=== PATIENT | female | born 1935 | race Caucasian/White ===

== ENCOUNTER 2018-06-13 11:23 | Emergency (ER) | payer SELFPAY ==
[2018-06-13 11:26] VITALS: TEMP 98.4; BMI 29.2
[2018-06-13] MEDS ORDERED: LABETALOL HCL 5 MG/1 ML (100MG/20 ML VIAL) IVPUSH ONE (11:43)
--- NOTE | 2018-06-13 11:54 | PDOC ---
History of Present Illness - General Chief Complaint: Blood Pressure Problem Stated Complaint: HIGH BLOOD PRESSURE Time Seen by Provider: 06/13/18 11:23 History Source: Patient Exam Limitations: No Limitations - History of Present Illness Initial Comments: 06/13/18 11:50 83 year old female with pmh of HTN, from [facility], presents with lightheadedness and elevated SBP > 210. The patient recently travelled from [facility] 1 month ago. Has been on a blood pressure medication from [facility] (to which we don't know the name of). Two weeks ago, saw a local PMD in the [place], who changed BP medications to bystolic 15 mg BID. Since then, has been feeling increasingly lightheaded, despite taking the medications. No recent illnesses, fevers, chills, headache, nausea, vomiting, chest pain, SOB , abdominal pain, diarrhea, dysuria. Today, pt c/o of feeling lightheaded. Son took the BP cuff and noted systolics > 210 despite adherence to meds and brought pt to ED. Past History - Past Medical History Allergies/Adverse Reactions: Allergies Allergy/AdvReac Type Severity Reaction Status Date / Time No Known Allergies Allergy Verified 06/13/18 11:23 Home Medications: Ambulatory Orders Aspirin [Aspirin EC] 81 mg PO DAILY 06/13/18 Cephalexin [Keflex] 500 mg PO BID #14 capsule 06/13/18 Nebivolol HCl [Bystolic] 15 mg PO BID 06/13/18 Nifedipine [Adalat cc] mg PO ASDIR 06/13/18 COPD: No HTN: Yes - Suicide/Smoking/Psychosocial Hx Smoking History: Never smoked Have you smoked in the past 12 months: No Review of Systems - Review of Systems Able to Perform ROS?: Yes Comments:: 06/13/18 12:00 GENERAL/CONSTITUTIONAL: [No fever or chills. No weakness. No weight change.] HEAD, EYES, EARS, NOSE AND THROAT: [No change in vision. No ear pain or discharge. No sore throat.] CARDIOVASCULAR: [No chest pain or shortness of breath.] RESPIRATORY: [No cough, wheezing, or hemoptysis.] GASTROINTESTINAL: [No nausea, vomiting, diarrhea or constipation. No rectal bleeding.] GENITOURINARY: [No dysuria, frequency, or change in urination.] MUSCULOSKELETAL: [No joint or muscle swelling or pain. No neck or back pain.] SKIN AND BREASTS: [No rash or easy bruising.] NEUROLOGIC: [No headache, vertigo, loss of consciousness, or loss of sensation. ] + lightheadedness PSYCHIATRIC: [No depression or anxiety.] ENDOCRINE: [No increased thirst. No abnormal weight change.] HEMATOLOGIC/LYMPHATIC: [No anemia, easy bleeding, or history of blood clots.] ALLERGIC/IMMUNOLOGIC: [No hives or skin allergy. No latex allergy.] *Physical Exam - Vital Signs Last Vital Signs Temp Pulse Resp BP Pulse Ox 98.4 F 61 18 213/94 H 96 06/13/18 11:23 06/13/18 11:23 06/13/18 11:23 06/13/18 11:23 06/13/18 11:23 - Physical Exam Comments: 06/13/18 12:00 GENERAL: Awake, alert, and fully oriented, in no acute distress HEAD: No signs of trauma EYES: EOMI, sclera anicteric, conjunctiva clear ENT: Auricles normal inspection, hearing grossly normal, nares patent, o Moist mucosa NECK: Normal ROM, supple LUNGS: Breath sounds equal, clear to auscultation bilaterally. No wheezes, and no crackles HEART: Regular rate and rhythm, normal S1 and S2, no murmurs, rubs or gallops ABDOMEN: Soft, nontender,. No guarding, no rebound. No masses EXTREMITIES: Normal range of motion, no edema. No clubbing or cyanosis. No cords, erythema, or tenderness NEUROLOGICAL: Cranial nerves II through XII intact. Normal speech, normal gait. 5/5 strength upper and lower extremities. No pronator drift. Sensation intact throughout. SKIN: Warm, Dry, normal turgor, no rashes or lesions noted. Heart Score/ECG Review #1 ECG reviewed & interpreted by me at: 11:40 06/13/18 11:54 NSR 57 with 1st degree AV block, LVH, T wave flat aVL, V2, no std/keven, QTC 457 msec ED Treatment Course - LABORATORY CBC & Chemistry Diagram: 06/13/18 12:00 06/13/18 12:45 Medical Decision Making - Medical Decision Making 06/13/18 12:01 Vital Signs Temp Pulse Resp BP Pulse Ox 98.4 F 61 18 213/94 H 96 06/13/18 11:23 06/13/18 11:23 06/13/18 11:23 06/13/18 11:23 06/13/18 11:23 83 year old female with very elevated blood pressure. I suspect may be secondary to adjustments to her BP regiment. Pt only endorsing lightheadedness, but will check labs and ECG. Will defer on Head CT given no headache and normal neuro exam. Check UA for UTI Trial hydralazine and reassess. Touch base with PMD. 06/13/18 13:52 CBC, BMP 06/13/18 12:00 06/13/18 12:45 CMP Sodium 133 mmol/L (136-145) L 06/13/18 12:45 Potassium 3.5 mmol/L (3.5-5.1) 06/13/18 12:45 Chloride 105 mmol/L (98-107) 06/13/18 12:45 Carbon Dioxide 22 mmol/L (22-28) 06/13/18 12:45 Anion Gap 6 MMOL/L (8-16) L 06/13/18 12:45 BUN 15 mg/dl (7-18) 06/13/18 12:45 Creatinine 0.7 mg/dl (0.6-1.3) 06/13/18 12:45 Creat Clearance w eGFR > 60 (>60) 06/13/18 12:45 Random Glucose 109 mg/dl (74-106) H 06/13/18 12:45 Calcium 8.5 mg/dl (8.4-10.2) 06/13/18 12:45 Magnesium 1.8 mg/dL (1.8-2.4) 06/13/18 12:45 Total Bilirubin 0.6 mg/dl (0.2-1.0) 06/13/18 12:45 AST 30 U/L (10-42) 06/13/18 12:45 ALT 31 U/L (10-40) 06/13/18 12:45 Alkaline Phosphatase 132 U/L (32-92) H 06/13/18 12:45 Troponin I < 0.03 ng/ml (0.00-0.06) 06/13/18 12:45 Total Protein 7.0 g/dl (6.4-8.3) 06/13/18 12:45 Albumin 3.7 g/dl (3.5-5.0) 06/13/18 12:45 Urine Test Results Urine Color Yellow 06/13/18 12:10 Urine Appearance Clear 06/13/18 12:10 Urine pH 7.0 (4.5-8) 06/13/18 12:10 Ur Specific [place] 1.015 (1.010-1.035) 06/13/18 12:10 Urine Protein 2+ (NEGATIVE) H 06/13/18 12:10 Urine Glucose (UA) Negative (NEGATIVE) 06/13/18 12:10 Urine Ketones Negative (NEGATIVE) 06/13/18 12:10 Urine Blood 1+ (NEGATIVE) H 06/13/18 12:10 Urine Nitrite Negative (NEGATIVE) 06/13/18 12:10 Urine Bilirubin Negative (NEGATIVE) 06/13/18 12:10 Ur Leukocyte Esterase 2+ (NEGATIVE) H 06/13/18 12:10 Urine RBC 2-5 /hpf (0-3) 06/13/18 12:10 Urine WBC 10-20 (0-5) 06/13/18 12:10 Ur Epithelial Cells 1+ /HPF 06/13/18 12:10 Urine Bacteria 3+ /hpf (NEGATIVE) 06/13/18 12:10 Labs and UA reviewed. I suspect the patient's elevated BP and lightheadedness may be secondary to her UTI. Will treat with keflex. Pt's BP improved significantly with hydralazine. I had spoken with pt's PCP Dr. Self [phone]. Pt was on high doses of amiodarone and nifedipine sublingual for her HTN. States that this is an old [facility] HTN medication. The patient was having significant coughing from the amiodarone, which Dr. Self promptly discontinued. The patient was then placed on bystolic instead. I have interpreted the chest xray, (pending official radiology read), appears to have borderline cardiomegaly and perhaps some evidence of interstitial lung disease. This was expressed to the PCP who states that this may be the result of the amiodarone. Either way, patient has no chest pain or SOB, and the patient reports feeling better here. I advised the patient and son that we should treat UTI first then consider adjusting BP medications. Pt's son agrees with plan. Pt's PCP agrees with plan. *DC/Admit/Observation/Transfer Diagnosis at time of Disposition: UTI (urinary tract infection) Qualifiers: Urinary tract infection type: site unspecified Hematuria presence: without hematuria Qualified Code(s): N39.0 - Urinary tract infection, site not specified Hypertension Qualifiers: Hypertension type: essential hypertension Qualified Code(s): I10 - Essential ( primary) hypertension - Discharge Dispostion Disposition: HOME Condition at time of disposition: Improved - Prescriptions Prescriptions: Cephalexin [Keflex] 500 mg PO BID #14 capsule - Referrals - Patient Instructions Printed Discharge Instructions: DI for High Blood Pressure, DI for Urinary Tract Infection (UTI) Additional Instructions: Please take the antibiotics (keflex) every 12 hours for 7 days. Drink plenty of fluids and rest. Please bring the copy of the results to your doctor. Continue to take your blood pressure medication. Please follow up with your doctor. Call to schedule an appointment. If you ever had chest pain or difficulty breathing, please return to the ER. - Post Discharge Activity
[2018-06-13] MEDS ORDERED: LABETALOL HCL 5 MG/1 ML (100MG/20 ML VIAL) ONE (12:06)
[2018-06-13] MEDS ORDERED: hydrALAZINE HCL 20 MG/ML VIAL IVPUSH ONE (12:12)
[2018-06-13] MEDS ORDERED: hydrALAZINE HCL 20 MG/ML VIAL ONE (12:13)
[2018-06-13 12:20] LABS: EOS % 3.6 % (0-4.5); HEMATOCRIT 39.3 % (32.4-45.2); LYMPH % 27.9 % (8-40); MCH 29.1 pg (25.7-33.7); MCHC 33.2 g/dl (32.0-36.0); MEAN CELL VOLUME 87.8 fl (80-96); MEAN PLT VOLUME 9.4 fl (7.5-11.1); MONO % 10.2 % (3.8-10.2); NEUT % 56.3 % (42.8-82.8); PLATELET COUNT 365 K/MM3 (134-434); RBC 4.47 M/mm3 (3.60-5.2); RDW 13.9 % (11.6-15.6); WHITE BLOOD COUNT 7.1 K/mm3 (4.0-10.8)
[2018-06-13 12:27] LABS: URINE APPEARANCE Clear; URINE BILIRUBIN Negative (NEGATIVE); URINE COLOR Yellow; URINE GLUCOSE (UA) Negative (NEGATIVE); URINE KETONE Negative (NEGATIVE); URINE LEUK ESTERASE 2+ (NEGATIVE); URINE NITRITE Negative (NEGATIVE); URINE PROTEIN 2+ (NEGATIVE); URINE UROBILINOGEN 0.2 (0.2-1.0)
[2018-06-13 13:02] LABS: ALBUMIN 3.7 g/dl (3.5-5.0); ALK PHOS 132 U/L (32-92); ANION GAP 6 MMOL/L (8-16); BILIRUBIN,TOTAL 0.6 mg/dl (0.2-1.0); BLOOD UREA NITROGEN 15 mg/dl (7-18); CALCIUM 8.5 mg/dl (8.4-10.2); CHLORIDE 105 mmol/L (98-107); CO2 22 mmol/L (22-28); CREATININE 0.7 mg/dl (0.6-1.3); GLUCOSE,RANDOM 109 mg/dl (74-106); MAGNESIUM 1.8 mg/dL (1.8-2.4); POTASSIUM 3.5 mmol/L (3.5-5.1); SGOT/AST 30 U/L (10-42); SGPT/ALT 31 U/L (10-40); SODIUM 133 mmol/L (136-145)
[2018-06-13 13:03] LABS: EPI CELLS 1+ /HPF; URINE BACTERIA 3+ /hpf (NEGATIVE)
[2018-06-13] MEDS ORDERED: CEPHALEXIN MONOHYDRATE 500 MG CAPSULE (UD) PO ONE (13:09)
[2018-06-13] MEDS ORDERED: CEPHALEXIN MONOHYDRATE 500 MG CAPSULE (UD) ONE (13:24)
[2018-06-13 13:32] VITALS: BP 142/71; PULSE 59
--- NOTE | 2018-06-14 10:33 | EKG ---
Test Reason : Blood Pressure : / mmHG Vent. Rate : 057 BPM Atrial Rate : 057 BPM P-R Int : 236 ms QRS Dur : 086 ms QT Int : 470 ms P-R-T Axes : 074 001 014 degrees QTc Int : 457 ms SINUS BRADYCARDIA WITH 1ST DEGREE A-V BLOCK MINIMAL VOLTAGE CRITERIA FOR LVH, MAY BE NORMAL VARIANT NONSPECIFIC ST ABNORMALITY ABNORMAL ECG NO PREVIOUS ECGS AVAILABLE Confirmed by PIERO HALLMAN MD ([id number]) on 06/14/2018 10:32:47 AM Referred By: DAYRON JUSTIN Confirmed By:PIERO HALLMAN MD
== END 2018-06-13 14:06 | disposition home or self-care (01) ==
LOC: FER 11:23
CPT/HCPCS: 36415; 71045-TC-FY; 80053; 81003; 81015; 83735; 84484; 85025; 87086; 87186; 93005; 99285-25